=== PATIENT | male | born 1965 ===

== ENCOUNTER 2018-09-17 08:05 | Outpatient (CLI) | payer SELFPAY | END 2018-09-17 08:06 | disposition home or self-care (01) | LOC: C.LAB 08:05 | DX: E78.2 Mixed hyperlipidemia (principal) ==

== ENCOUNTER 2018-11-26 09:44 | Outpatient (CLI) | payer SELFPAY | END 2018-11-26 09:45 | disposition home or self-care (01) | LOC: C.LAB 09:44 | DX: E78.1 Pure hyperglyceridemia (principal); I10 Essential (primary) hypertension; E11.9 Type 2 diabetes mellitus without complications; Z12.11 Encounter for screening for malignant neoplasm of colon ==